=== PATIENT | female | born 2000 | race Two or more races ===

== ENCOUNTER 2020-07-17 12:00 | Emergency (ER) | payer BC, OTHER ==
[~2020-07-17] VITALS: Ht 172.7 cm; Wt 113.4 kg
[2020-07-17 13:56] LABS: Urine Bacteria NONE SEEN /hpf (None Seen); Urine Blood Negative /uL (Negative); Urine Mucus FEW (None Seen); Urine Specific Gravity 1.024 (1.001-1.035); Urine WBC 12 /hpf (0 - 5)
[2020-07-17 14:08] VITALS: BP 150/82
[2020-07-17] MEDS ORDERED: KETOROLAC TROMETH 60MG/2ML VIAL IM ONE (14:15)
== END 2020-07-17 14:47 | disposition home or self-care (01) ==
LOC: ER 12:00
DX: N39.0 Urinary tract infection, site not specified (principal)
CPT/HCPCS: 76856; 81001; 81025; 96372; 99284; J1885